=== PATIENT | female | born 2000 | race Caucasian/White ===

== ENCOUNTER → 2024-04-08 | Outpatient (CLI) | payer OTHER, MEDICAID, SELFPAY ==
[2024-04-08 15:55] LABS: Collection Type, Urine Clean Catch
[2024-04-08 17:59] LABS: Bilirubin,Urine Negative (Negative); Blood,Urine Negative (Negative); Clarity,Urine Clear (Clear/Hazy); Color,Urine Colorless (Lt Yel-Yel); Glucose, Urine Negative (Negative); Ketones,Urine Negative (Negative); Leukocyte Esterase,Urine Positive (Negative); Nitrite,Urine Negative (Negative); PH,Urine 6.5 (5.0-7.0); Protein,Urine Negative (Neg - Trace); RBC,Urine 1 /hpf (0-3); Specific Gravity,Urine 1.008 (1.001-1.035); Squamous Epithelial Cell,Urine 2 /hpf (0-5); Urobilinogen,Urine Negative mg/dL (0.0-1.0); WBC,Urine 3 /hpf (0-5)
== END | disposition home or self-care (01) ==
LOC: SLDO 15:40
PROVIDERS: PCP Registered Nurse; Referring Provider Registered Nurse; Visit Provider Registered Nurse
DX: N39.0 Urinary tract infection, site not specified (principal)
CPT/HCPCS: 81001; 87086

== ENCOUNTER → 2025-02-26 | Outpatient (CLI) | payer OTHER, MEDICAID, SELFPAY | END | disposition home or self-care (01) | LOC: SLDO 14:59 | PROVIDERS: PCP Student in an Organized Health Care Education/Training Program; Referring Provider Student in an Organized Health Care Education/Training Program; Visit Provider Student in an Organized Health Care Education/Training Program | DX: N39.0 Urinary tract infection, site not specified (principal) | CPT/HCPCS: 87086 ==

== ENCOUNTER 2025-04-27 07:14 | Emergency (ER) | payer OTHER, MEDICAID, SELFPAY ==
[2025-04-27 07:27] VITALS: BP 108/68; PULSE 72; RESP 18; TEMP 36.8; O2SAT 97
--- NOTE | 2025-04-27 07:31 | XR_ITS ---
2 views of the right scapula on 04/27/2025 at 819: CLINICAL HISTORY: Pain in the right shoulder after injury during working out FINDINGS: The bony alignment of the bones regional to the right shoulder are normal, all bones are radiographically normal. All of the visible ribs appear radiographically normal as does the upper two thirds of the right lung IMPRESSION: 1. Normal study
--- NOTE | 2025-04-27 07:31 | XR_ITS ---
AP and lateral radiographs of the dorsal spine on 04/27/2025 at 8:22 a.m. CLINICAL HISTORY: Patient injured his back today working out FINDINGS: 1. On a single lateral view of the cervical spine there is exceedingly minimal, possibly insignificant first degree spondylolisthesis with only 2 mm of offset. In the dorsal spine, the body of C2 appears possibly exceedingly mildly compressed, its height measures 17 mm, versus 19 mm at T1 and 18.7 mm at T3 its superior margin appears minimally concave. In all other respects all of the thoracic vertebra and upper to lumbosacral vertebra and interspaces and alignment appear normal. Visible lungs appear clear cardiothymic image appears unremarkable IMPRESSION: 1. There is the possibility of exceptionally minor compression along the superior margin of the second thoracic vertebra. Because of the minimal nature of this, I would correlated very carefully with localized symptoms in this area. If there are no symptoms, in all likelihood it is essentially normal. 2. No other abnormalities are seen
--- NOTE | 2025-04-27 07:32 | PD.EDBACK ---
ED Back Injury Pain RME/HPI General Chief Complaint: Back Pain/Injury Stated Complaint: UPPER BACK/SPINE PAIN 12/14 Time Seen by Provider: 04/27/25 07:16 Source: patient Arrival date/time: 04/27/25 07:14 25-year-old female with no known medical history presents to the emergency room with a chief complaint of thoracic back pain that radiates down her right shoulder x 1 day. Patient states she was working out and heard a pop in her back. Mode of arrival: ambulatory Limitations: no limitations Related Data Home Medications ?Medication ?Instructions ?Recorded ?Confirmed prenat.vits,robert,[id number] 1 tab PO QDAY 10/04/20 01/30/21 bupropion HCl 100 mg tablet 100 mg PO QDAY 02/13/21 02/13/21 ferrous sulfate 325 mg (65 mg 325 mg PO BID 02/13/21 02/13/21 iron) tablet (iron) Previous Rx's ?Medication ?Instructions ?Recorded sulfamethoxazole 800 1 tab PO Q12H #20 tabs 08/17/21 mg-trimethoprim 160 mg tablet (Bactrim DS) hydrocodone 5 mg-acetaminophen 325 1 tab PO BID PRN pain #10 tabs 04/27/25 mg tablet Allergies Allergy/AdvReac Type Severity Reaction Status Date / Time No Known Allergies Allergy Verified 04/27/25 07:18 Review of Systems Review of Systems Systems Reviewed: All systems reviewed, normal except as documented Constitutional Constitutional: Reports system reviewed and no additional complaints, except as documented, Denies fatigue, Denies fever(s), Denies headache(s) and Denies weakness Eyes Eyes: Reports system reviewed and no additional complaints, except as documented, Denies blurry vision and Denies change in vision ENT Ears, Nose, Mouth, and Throat: Reports system reviewed and no additional complaints, except as documented, Denies otalgia, Denies headache(s), Denies nasal congestion, Denies throat swelling and Denies vertigo Cardiovascular Cardiovascular: Reports system reviewed and no additional complaints, except as documented, Denies chest pain, Denies dyspnea and Denies dyspnea on exertion Respiratory Respiratory: Reports system reviewed and no additional complaints, except as documented, Denies chest congestion, Denies cough, Denies dyspnea, Denies dyspnea on exertion and Denies wheezing Gastrointestinal Gastrointestinal: Reports system reviewed and no additional complaints, except as documented, Denies abdominal pain, Denies cramping, Denies nausea and Denies vomiting Genitourinary Genitourinary: Reports system reviewed and no additional complaints, except as documented Musculoskeletal Musculoskeletal: Reports system reviewed and no additional complaints, except as documented and Reports back pain Integumentary/Breasts Skin/Breast: Reports system reviewed and no additional complaints, except as documented and Denies wounds Neurologic Neurologic: Reports system reviewed and no additional complaints, except as documented, Denies confusion, Denies headache(s), Denies lack of coordination, Denies vertigo and Denies weakness Psychiatric Psychiatric: Reports system reviewed and no additional complaints, except as documented, Denies anxiety, Denies confusion, Denies depression, Denies paranoia, Denies suicidal ideation and Denies tactile hallucinations Endocrine Endocrine: Reports system reviewed and no additional complaints, except as documented and Denies fatigue Hematologic/Lymphatic Hematologic/Lymphatic: Reports system reviewed and no additional complaints, except as documented and Denies lymphadenopathy Allergic/Immunologic Allergic/Immunologic: Reports system reviewed and no additional complaints, except as documented, Denies throat swelling, Denies urticaria and Denies wheezing Past Medical History Past Medical History NEUROLOGIC: Negative Neurological Disorders CARDIAC: Negative Cardiac Disorders or Congestive Heart Failure RESPIRATORY: Negative Chronic Obstructive Pulmonary Disease (COPD) GASTROINTESTINAL: Negative Gastrointestinal Disorders or Hepatitis GENITOURINARY: Negative Genitourinary Disorders or Renal Disease REPRODUCTIVE: Negative Endometriosis, Pelvic Inflammatory Disease, Previous Pregnancies or Uterine Prolapse MUSCULOSKELETAL: Negative Musculoskeletal Disorders ENDOCRINE: Negative Endocrine Disorders, Diabetes Mellitus Type 1 or Diabetes Mellitus Type 2 HEMATOLOGIC: Negative Blood Disorders PSYCHO/SOCIAL: Positive Depression (takes wellbutran.) and Anxiety OTHER HISTORY: Negative Hospitalization, Autoimmune Disease, Down Syndrome, Developmental Delay, Shingles, Falls, Blood Transfusions, Blood Transfusion Reaction, Anesthesia Reactions, Organ Transplant, Chemotherapy, Radiation Therapy, Hyperbaric Therapy, MRSA, VRSA, Vancomycin-Resistant Enterococci, Human Immunodeficiency Virus (HIV), Chicken Pox, Measles, Mumps, Rubella ([place] Measles), Pertussis, Clostridium Difficile or Cancer Family History FAMILY HISTORY: Positive Family Cardiac Disorders (half sister- stroke) and Family Gastrointestinal Problems (mother- gallbladder removed.); Negative Family Psychiatric Problems, Family Respiratory Disorders, Family Cancer, Family Surgery or Family Anesthesia Reaction Surgical History SURGICAL: Negative Organ Transplant Social History SMOKING STATUS: Never smoker ED Exam General Limitations: Present no limitations General appearance: Present alert and in no apparent distress Head Head exam: Present atraumatic Eye Eye exam: Present normal appearance, PERRL and EOMI ENT ENT exam: Present normal exam, normal oropharynx and mucous membranes moist Neck Neck exam: Present normal inspection, full ROM and trachea midline Chest Chest inspection: Present normal inspection and symmetric chest wall rise Respiratory Respiratory exam: Present normal lung sounds bilaterally Cardiovascular Cardiovascular exam: Present regular rate, normal rhythm and normal heart sounds Abdominal Exam Abdominal exam: Present soft and normal bowel sounds Extremities Exam Extremities exam: Present normal inspection and full ROM Back Exam Back exam: Present normal inspection, full ROM and vertebral tenderness Back 1 view image:  1. Thoracic back pain Neurological Exam Neurological exam: Present alert, oriented X3 and CN II-XII intact Psychiatric Psychiatric exam: Present normal affect and normal mood Skin Skin exam: Present warm, dry, intact and normal color Course Quality Measures none Orders Category Date Time Status CT thoracic spine wo con Stat Exams 04/27/25 09:57 Completed XR scapula RT Stat Exams 04/27/25 07:31 Completed XR thoracic spine 3V Stat Exams 04/27/25 07:31 Completed HCG Qualitative,Urine Stat Lab 04/27/25 10:25 Completed HYDROcodone*/APAP 5/325 [[place] 5/325] Med 04/27/25 09:57 Discontinued 1 tab PO X1 ONE Ibuprofen Tab [Motrin Tab] Med 04/27/25 07:34 Discontinued 600 mg PO X1 ONE Ondansetron Odt [Zofran Odt] Med 04/27/25 09:57 Discontinued 4 mg PO X1 ONE Vital Signs Vital signs: Vital Signs Temperature 98.2 F 04/27/25 07:27 Pulse Rate 72 04/27/25 07:27 Respiratory Rate 18 04/27/25 07:27 Blood Pressure 108/68 04/27/25 07:27 Pulse Oximetry (%) 97 04/27/25 07:27 Oxygen Delivery Method Room Air 04/27/25 07:27 Back Pain / Injury MDM Narrative MDM Narrative:: 25-year-old female with no known medical history presents to the emergency room with a chief complaint of thoracic back pain that radiates down her right shoulder x 1 day. Patient states she was working out and heard a pop in her back. Patient is hemodynamically stable and in no apparent distress Physical examination shows tenderness and pain in the thoracic area the patient's spine. The patient's pain radiates to the right scapular area. An x-ray was completed and is ambiguous to whether there is any fracture. A CT of the thoracic spine was then ordered and was negative for any acute cervical or thoracic fracture Patient was discharged and educated to follow-up with primary care provider in the next 24 to 48 hours and return to the emergency room for any evidence of worsening signs or symptoms Patient data External records reviewed:: [facility] previous records Clinical information provided by:: patient Social determinants that could affect healthcare access:: none Patient has the following chronic illnesses:: No chronic illness How is presenting disease/condition affected by chronic disease/condition?: no chronic disease Evaluation data The following diagnostics were reviewed and interpreted by me:: lab results and radiology exam(s) Lab and/or radiology exams considered but not ordered:: Labs and radiology exams considered and ordered Interpretation Summary: CT thoracic spine-Findings: Satisfactory line midthoracic vertebral bodies No thoracic fracture Thoracic pedicles, laminae transverse and posterior spinous processes intact Mild thoracic disc narrowing T7-T8 Axial images demonstrate no focal thoracic disc protrusion IMPRESSION: No thoracic fracture Mild thoracic disc narrowing T7-T8 If thoracic pain persists, consider MRI thoracic spine without contrast follow-up Medications / Prescriptions Medications or Prescriptions considered but not ordered:: Medication given Medication administrations:: Medication Administration History Discontinued Medications Hydrocodone Bitart/Acetaminophen (Hydrocodone/Apap 5/325 Tablet) 1 tab PO X1 ONE Stop: 04/27/25 09:58 Last Admin: 04/27/25 10:24 Dose: 1 tab Documented By: GUANACO Ibuprofen (Ibuprofen Tab 600 Mg Tablet) 600 mg PO X1 ONE Stop: 04/27/25 07:35 Last Admin: 04/27/25 07:40 Dose: 600 mg Documented By: MARCY Ondansetron HCl (Ondansetron Odt 4 Mg Tabrap) 4 mg PO X1 ONE; Protocol Stop: 04/27/25 09:58 Last Admin: 04/27/25 10:23 Dose: 4 mg Documented By: GUANACO Medication given Consultations Consultation(s) initiated? (list below): No Diagnosis Differential diagnosis back pain/injury: thoracic back pain and discitis Most likely diagnosis given after review of the tests above:: Thoracic back pain Admission Indicated Admission indicated?: not indicated Admission Request Was there a request for admission?: No Disposition Plan Disposition Plan: Discharge Discharge Attestation Discharge Attestation: The patient and all family members were given an opportunity to ask questions and understood the discharge instructions. Discharge instructions specifically effects, indications for sooner follow up or return to the emergency department, and the expected course of current diagnosis. Patient condition: Stable Discharge Plan Plan Patient Disposition: HOME (Self Care) Discharge Disposition comment: Stable Prescriptions/Referrals Prescriptions/Med Rec: New hydrocodone-acetaminophen 5-325 mg tablet 1 tab PO BID MDD 10mg PRN (Reason: pain) Qty: 10 0RF No Action bupropion HCl [Wellbutrin] 100 mg Tablet 100 mg PO QDAY ferrous sulfate [iron] 325 mg (65 mg iron) Tablet 325 mg PO BID Vitamin Tablet 1 tab PO QDAY sulfamethoxazole-trimethoprim [Bactrim DS] 800-160 mg tablet 1 tab PO Q12H Qty: 20 0RF Referrals: Sara Iniguez, PE TEACHER [Primary Care Provider] - In 1 week Problem List Clinical Impression: Acute thoracic back pain Patient/Caregiver Discharge Instructions Education Materials: ED Back and Neck Pain, General Additional Instructions: Please follow-up with your primary care provider in the next [address] of your thoracic spine was completed and was negative for any acute thoracic fracture For any evidence of worsening signs or symptoms return to the emergency room immediately Print Language: Niuean Stand Alone Forms: Alesha Award Info., Work/School Release, Patient Portal Info Letter TIFFANIE/RAMÍREZ Supervising Physician TIFFANIE/RAMÍREZ Supervising Physician: Dr. Woods
[2025-04-27] MEDS: IBUPROFEN TAB 600 MG TABLET PO (07:40)
--- NOTE | 2025-04-27 09:57 | XR_ITS ---
Examination: CT thoracic spine, without contrast. 2-D sagittal reconstructions. 2-D coronal reconstructions. 3-D reconstructions. Date and time of exam: April 27, 2025, 1113 hours INDICATIONS: Lifting injury followed by back pain today CTDI: vol (mGy): 21.5 DLP: (mGycm): 784 Technique: Multiple 1.25 mm axial sections of the thoracic spine without intravenous contrast have been obtained. 2-D sagittal and coronal reconstructions have been obtained. 3-D reconstructions have been obtained. Low dose protocols were performed. One or more of the following dose reduction techniques were used; automated exposure control, adjustment of the mA and/or KV according to patient size, use of iterative reconstruction technique. Findings: Satisfactory line midthoracic vertebral bodies No thoracic fracture Thoracic pedicles, laminae transverse and posterior spinous processes intact Mild thoracic disc narrowing T7-T8 Axial images demonstrate no focal thoracic disc protrusion IMPRESSION: No thoracic fracture Mild thoracic disc narrowing T7-T8 If thoracic pain persists, consider MRI thoracic spine without contrast follow-up
[2025-04-27] MEDS: ONDANSETRON ODT 4 MG TABRAP PO (10:23)
[2025-04-27] MEDS: HYDROcodone/APAP 5/325 TABLET 1 TAB PO (10:24)
[2025-04-27 10:46] LABS: HCG Qualitative,Urine Negative
== END 2025-04-27 15:38 | disposition home or self-care (01) ==
PROVIDERS: Nurse Practitioner Family; Emergency Provider Family Medicine; PCP Registered Nurse
DX: M48.04 Spinal stenosis, thoracic region (principal); M25.511 Pain in right shoulder; X58.XXXA Exposure to other specified factors, initial encounter; Y93.B9 Activity, other involving muscle strengthening exercises
CPT/HCPCS: 72072; 72128; 73010; 81025; 99283; Q0162; A9270